=== PATIENT | male | born 1965 | race Caucasian/White ===

== ENCOUNTER 2017-03-23 03:05 | Inpatient (IN) ==
[2017-03-18 10:55] LABS: MANUAL DIFF NEEDED? NO; URINE MICRO REVIEW NEEDED? NO; URINE SOURCE VOIDED
[2017-03-18 11:51] LABS: BASO% 0.3 % (0.0-0.8); EOS# 0.37 X1000 (0.0-0.7); EOS% 3.7 % (0.0-10.0); HEMATOCRIT 45.3 % (42.0-52.0); HEMOGLOBIN 14.9 g/dL (14.0-18.0); IMM GRAN# 0.02 X1000 (0.0-0.04); IMM GRAN% 0.2 % (0.0-0.5); LYMPH# 1.78 X1000 (1.2-3.4); LYMPH% 17.7 % (20.5-51.1); MCH 28.8 PG (27-31); MCHC 32.9 g/dL (33-37); MCV 87.6 FL (81-99); MONO# 0.45 X1000 (0.11-0.59); MONO% 4.5 % (1.7-9.3); MPV 11.3 FL (7.4-10.4); NEUT% 73.6 % (42.2-75.2); PLT 310 X1000 (130-400); RBC 5.17 XMIL (4.7-6.1)
[2017-03-18 11:53] LABS: BILIRUBIN URINE NEGATIVE (NEGATIVE); BLOOD URINE NEGATIVE (NEGATIVE); COLOR YELLOW; GLUCOSE URINE NEGATIVE (NEGATIVE); LEUKOCYTES URINE NEGATIVE (NEGATIVE); NITRITE URINE NEGATIVE (NEGATIVE); PH URINE 6.5; PROTEIN URINE TRACE mg/dL (NEGATIVE); TURBIDITY URINE CLEAR (CLEAR); UROBILINOGEN URINE NORMAL (NORMAL)
[2017-03-18 11:54] LABS: UR EPITHELIAL CELLS <10 /HPF (<10); URINE BACTERIA NEGATIVE /HPF; URINE RBC <10 /HPF (<10); URINE WBC <10 /HPF (<10)
[2017-03-18 12:01] LABS: INR 1.04; PTT 24.1 Seconds (22.0-36.0)
[2017-03-18 12:06] LABS: AGAP 9; BUN 15 mg/dL (8-22); CALCIUM 9.1 mg/dL (8.8-10.2); CHLORIDE 99 mmol/L (98-107); COSMO 268; POTASSIUM 4.1 mmol/L (3.5-5.1); SODIUM 134 mmol/L (136-145); TCO2 26 mmol/L (25-35)
[2017-03-23] MEDS ORDERED: REGLAN ONE (07:50)
[2017-03-23] MEDS ORDERED: COLACE ONE (07:50)
[2017-03-23] MEDS ORDERED: CELEBREX ONE (07:50)
[2017-03-23] MEDS ORDERED: LYRICA ONE (07:50)
[2017-03-23] MEDS ORDERED: PEPCID ONE (07:50)
[2017-03-23] MEDS ORDERED: LR 1,000 ML ONE ×2 (07:51→12:57)
[2017-03-23] MEDS ORDERED: KEFZOL 2 GM/D5W 2 GM/50 ML IVPB ONE (07:51)
[2017-03-23] MEDS: COLACE PO SCH ×3 (08:12→20:18)
[2017-03-23] MEDS: CELEBREX PO SCH (08:12)
[2017-03-23] MEDS ORDERED: TORADOL ONE (08:14)
[2017-03-23] MEDS ORDERED: CYKLOKAPRON 1,000 MG/NS 1,000 MG/100 ML IVPB ONE ×2 (08:14→08:16)
[2017-03-23] MEDS ORDERED: VANCOMYCIN ONE ×2 (08:14→09:08)
[2017-03-23] MEDS ORDERED: MARCAINE 0.25% PF/EPI 1:200,000 ONE (08:14)
[2017-03-23] MEDS ORDERED: SODIUM CHLORIDE 0.9% ONE (08:14)
[2017-03-23] MEDS ORDERED: NEOSPORIN G.U. IRRIGANT ONE (08:15)
[2017-03-23] MEDS ORDERED: EXPAREL 1.3% ONE (08:15)
[2017-03-23] MEDS ORDERED: SOLU-CORTEF IV ONE (08:15)
[2017-03-23] MEDS ORDERED: FENTANYL ONE ×2 (08:21→13:44)
[2017-03-23] MEDS ORDERED: DIPRIVAN 1% 500 MG/50 ML BOTTLE ONE (08:22)
[2017-03-23] MEDS ORDERED: VERSED ONE (08:46)
[2017-03-23] MEDS ORDERED: TOBRAMYCIN POWDER MISC ONE (09:00)
[2017-03-23 09:44] LABS: URINE MICRO REVIEW NEEDED? NO; URINE SOURCE CATH
[2017-03-23 09:53] LABS: UR EPITHELIAL CELLS <10 /HPF (<10); URINE BACTERIA NEGATIVE /HPF; URINE RBC <10 /HPF (<10); URINE WBC <10 /HPF (<10)
[2017-03-23 09:54] LABS: BILIRUBIN URINE SMALL (NEGATIVE); BLOOD URINE NEGATIVE (NEGATIVE); COLOR YELLOW; GLUCOSE URINE NEGATIVE (NEGATIVE); LEUKOCYTES URINE NEGATIVE (NEGATIVE); NITRITE URINE NEGATIVE (NEGATIVE); PH URINE 6.5; PROTEIN URINE 50 mg/dL (NEGATIVE); SP GRAVITY URINE 1.029; TURBIDITY URINE CLEAR (CLEAR); UROBILINOGEN URINE 2 mg/dL (NORMAL)
[2017-03-23] MEDS ORDERED: NS 1,000 ML ONE (11:49)
--- NOTE | 2017-03-23 12:33 | HISTORY AND PHYSICAL ---
CHIEF COMPLAINT: Right knee pain. HISTORY OF PRESENT ILLNESS: This is a 51-year-old male who had a right total knee arthroplasty performed in 2003. Recently, he had to have a revision with antibiotics placed in his knee. Today, he is here for the second revision with placement of new components and antibiotic beads. The surgical procedure, as well as risks and benefits, were explained to patient and, at this time, he is ready to proceed. PAST MEDICAL HISTORY: No history of any serious illnesses other than rheumatoid arthritis. PAST SURGICAL HISTORY: He had his right foot and bilateral knees. ALLERGIES: Not allergic to any medications. REGULAR MEDICATIONS: 1. Cymbalta 60 one a day. 2. [place] 10 p.r.n. pain. 3. Prednisone 5 one a day. 4. Protonix 1, one a day. 5. Voltaren 75 twice a day. REVIEW OF SYSTEMS: HEENT: No history of migraines, dizziness, loss of conscious, CVA. Respiratory: He smokes half-pack cigarettes per day. No history of asthma, emphysema, or shortness of breath. Heart: No history of heart abnormalities. Abdomen: No history of ulcer or digestive disorders. He does have a history of kidney stones. PHYSICAL EXAMINATION: GENERAL: This is a 51-year-old male, alert and oriented. His primary care physician is Dr. Arteaga. HEENT: Pupils equal, round, reactive. NECK: Good range of motion without adenopathy or masses. RESPIRATORY: Respirations equal and unlabored, clear bilaterally. HEART: Regular rate and rhythm. ABDOMEN: Soft, nontender. Bowel sounds present. EXTREMITIES: He complains of pain in his right knee. At this time, he does have a well healed incision. He has some swelling at this time and walks with some difficulty. IMPRESSION: Failed right total knee arthroplasty. PLAN: Revision of right total knee arthroplasty with insertion of antibiotic beads. Dictated by Jose Holland RN for Derek Loius MD This chart was documented by the indicated scribe, Jose Holland RN and accurately reflects the services I performed and decisions made by me, Derek Louis MD, as attested by the provider's signature. cc: Derek Louis MD
--- NOTE | 2017-03-23 12:54 | Diag Imaging Result Doc PS360 ---
EXAM: KNEE 1-2 VIEWS-RIGHT HISTORY: tka TECHNIQUE: Portable COMPARISON: None. FINDINGS: There has been recent orthopedic replacement of the right knee. There is good alignment of the femoral and tibial components. There are anterior skin raquel and a superior surgical drain. No fracture. No dislocation. IMPRESSION: Recently replaced right knee with good alignment Electronically signed by Terrence Rosales 03/23/2017 12:52 PM
[2017-03-23] MEDS ORDERED: ZOFRAN ONE (12:57)
[2017-03-23] MEDS ORDERED: OFIRMEV 1000 MG/ISOTONIC SOLN 1,000 MG/100 ML BOTTLE ONE (12:57)
[2017-03-23] MEDS ORDERED: LABETALOL (DOSE) ONE (12:57)
[2017-03-23] MEDS ORDERED: XYLOCAINE-MPF 2% ONE (12:57)
[2017-03-23] MEDS ORDERED: DECADRON ONE (12:58)
--- NOTE | 2017-03-23 13:46 | OPERATIVE NOTE ---
PROCEDURE DATE: 03/23/2017 PREOPERATIVE DIAGNOSIS: Status post right total knee infection with a temporary spacer. POSTOPERATIVE DIAGNOSIS: Status post right total knee infection with a temporary spacer. PROCEDURE: Revision knee replacement with reimplantation of revision knee, total. SURGEON: Candida Louis MD. RAPID EXTRACTOR OPERATOR: Ben Walter. ANESTHESIA: General. COMPLICATION: None. PROCEDURE IN DETAIL: A 51-year-old male status post removal of a infected total knee with a temporary spacer presents for surgical revision. Risks, benefits, and no guarantees were discussed. The patient was taken to the operating room and satisfactory anesthesia obtained. The right leg was prepped and draped in usual sterile fashion and time-out taken to confirm operative site, procedure, and patient. The leg was wrapped with an Esmarch. Tourniquet inflated to 350 mmHg. A anterior approach of the previous incision of the knee was undertaken with medial arthrotomy. Cultures were taken for aerobic, anaerobic cultures as well as a Gram stain which showed no organisms or bacteria. The patella was subluxed laterally and the temporary femoral prosthesis was removed with osteotomes without difficulty. The temporary tibial poly was removed and any bone cement debrided. Sequential reaming of the tibia was then undertaken with the knee flexed up to an 18 mm reamer. The tibia was then broach from metaphyseal sleeve up to a 37 tibial metaphyseal sleeve using the [employer] tibial revision system. A size 4 tibial tray was selected and trial tibial implant implanted. Next, the femur was reamed up to a 20 mm reamer. The femur was then broached to accommodate a metaphyseal sleeve and the femur and a size 5 TC3 femoral component. Revision cuts were made on the distal cortex as well as the chamfer cuts. The size 5 right posterior stabilized femoral component was then assembled with appropriate augments and placed on the femur. Trialing with a 17.5 rotating platform poly revealed good range of motion and stability. There was lateral tracking of the patella and lateral release was performed with good stability. The trial implants were removed and the bony surfaces thoroughly irrigated with pulsatile lavage. Antibiotic beads were then placed down the intramedullary and extramedullary canal both the femur and the tibia. Cement with a gram of vancomycin was then used to cement the stem tibial component and stem femoral component onto their surfaces. A patella was placed using a 38 dome patella after reaming for the patellar lug holes. After cement cured on all 3 components, the excess cement was removed. The 17.5 size 5 rotating platform poly was then placed into the tibial tray and the knee reduced. Final range of motion was 0-120 degrees of motion with midline patellar tracking. The arthrotomy was then copiously irrigated with irrigant and closed over a drain. The joint was injected with Exparel for pain management. The joint capsule was then closed with #1 Vicryl, the subcutaneous with 2-0 Vicryl, and the skin with skin raquel. Sterile dressings completed the closure and the patient was recovered from anesthesia and tourniquet released with good return of capillary blood flow. No intraoperative complications were noted. Instrument count and sponge count was correct at the time of closure. cc: Derek Louis MD
[2017-03-23] MEDS: CYMBALTA PO SCH (13:58)
[2017-03-23] MEDS: PREDNISONE PO SCH (13:58)
[2017-03-23] MEDS: MORPHINE IV PRN ×3 (14:00→20:19)
[2017-03-23] MEDS: KEFZOL 1 GM/D5W 1 GM/50 ML IVPB IV SCH (16:17)
[2017-03-23] MEDS: NORCO-10 PO PRN (17:10)
[2017-03-23] MEDS: PERIDEX MT SCH (20:18)
[2017-03-23] MEDS: NS 1,000 ML IV SCH (20:19)
[2017-03-24] MEDS: NS 1,000 ML IV SCH (00:57)
[2017-03-24] MEDS: KEFZOL 1 GM/D5W 1 GM/50 ML IVPB IV SCH (01:37)
[2017-03-24 05:41] LABS: HEMATOCRIT 36.3 % (42.0-52.0); HEMOGLOBIN 11.8 g/dL (14.0-18.0)
[2017-03-24 05:57] LABS: AGAP 12; BUN 18 mg/dL (8-22); CALCIUM 8.1 mg/dL (8.8-10.2); CHLORIDE 104 mmol/L (98-107); COSMO 279; POTASSIUM 4.2 mmol/L (3.5-5.1); SODIUM 138 mmol/L (136-145); TCO2 22 mmol/L (25-35)
[2017-03-24] MEDS ORDERED: XARELTO PO SCH (06:00)
[2017-03-24] MEDS: NORCO-10 PO PRN ×2 (06:05→11:12)
[2017-03-24] MEDS ORDERED: PRILOSEC PO SCH (07:00)
[2017-03-24] MEDS: PREDNISONE PO SCH (09:43)
[2017-03-24] MEDS: CYMBALTA PO SCH (09:43)
[2017-03-24] MEDS: COLACE PO SCH (09:43)
[2017-03-24] MEDS: PERIDEX MT SCH (09:43)
[2017-03-24] MEDS: CELEBREX PO SCH (09:43)
[2017-03-24 11:23] VITALS: BP 122/72
--- NOTE | 2017-03-25 11:14 | DISCHARGE SUMMARY ---
ADMISSION DATE: 03/23/2017 DISCHARGE DATE: 03/24/2017 FAMILY PHYSICIAN: Ventura Arteaga MD ADMITTING DIAGNOSIS: Degenerative joint disease of the right knee. ADDITIONAL DIAGNOSES: 1. Rheumatoid arthritis. 2. Depression. 3. History of deep vein thrombosis. DISCHARGE DIAGNOSIS: Degenerative joint disease of the right knee, status post right total knee arthroplasty revision. ADMITTING HISTORY AND HOSPITAL COURSE: Mr. Ly is a 51-year-old male who had a right total knee arthroplasty performed in 2003. Recently he had to have revision with antibiotics placed in his left knee and this admission he is here for revision of his right knee with placement of new components and antibiotic beads. The surgical procedure as well as the risks and benefits were explained to the patient and he wished to continue with the procedure. Post operatively, he has done very well. His vital signs have remained stable. He is afebrile. His lab work looks good. He is ambulating 250 feet with full weight and only a front wheeled walker with guard assistance. His incision looks good. There is no erythema or drainage noted. The dressing is clean and dry. We plan to discharge him home today with outpatient physical therapy. DISCHARGE VITAL SIGNS: Temperature is 97.8 degrees Fahrenheit, pulse 69, respiratory rate 16, blood pressure 122/72, and O2 saturation 96% on room air. DISCHARGE LAB WORK: Hemoglobin and hematocrit are 11.8 and 36.3. Sodium is 138 , potassium 4.2, BUN 18, and creatinine 0.7. DISCHARGE MEDICATIONS: 1. [place] 10 mg, 1-2 tabs p.o. every 4 hours p.r.n. pain. 2. Cymbalta 60 mg p.o. daily. 3. Prilosec 20 mg p.o. daily. 4. Prednisone 5 mg p.o. daily. 5. Xarelto 10 mg p.o. daily for 14 days. DISCHARGE INSTRUCTIONS: Mr. Ly is discharged home today with self-care. He will begin an outpatient physical therapy regimen this week. I have discussed with him that he will go home on a blood thinner, Xarelto, for the next 14 days. He has also been given discharge instructions on how to clean his incision. He has been instructed to shower daily and take no tub baths. He has also been instructed to call if there are any signs or symptoms of infection such as redness or drainage. I have discussed the importance of physical therapy with him. We have also given him a follow-up appointment with Dr. Louis in about 10 days at which time he will have his raquel removed. If he has any questions or concerns he is encouraged to call the [facility]. Dictated by BYRON Phillip for Derek Louis MD cc: BYRON Phillip MD [facility]
== END 2017-03-24 16:06 | disposition home or self-care (01) ==
LOC: SURHOLD 03:05 → 4N 10:19
PROVIDERS: ADMIT Orthopaedic Surgery Adult Reconstructive Orthopaedic Surgery; ATTEND Orthopaedic Surgery Adult Reconstructive Orthopaedic Surgery